=== PATIENT | male | born 1975 | race Caucasian/White ===

== ENCOUNTER 2023-03-28 19:32 | Emergency (ER) | payer OTHER, MEDICAID ==
[~2023-03-28] VITALS: Ht 165.1 cm; Wt 70.3 kg
[2023-03-28 19:32] VITALS: BP_SYST 124
[2023-03-28] MEDS ORDERED: ONDANSETRON HCL 4 MG/2 ML VIAL IVP ONE (20:00)
[2023-03-28] MEDS ORDERED: ASPIRIN 81 MG TABLET(ECOTRIN) PO ONE (20:00)
[2023-03-28] MEDS ORDERED: PANTOPRAZOLE SODIUM 40 MG/VIAL (PROTONIX) IVP ONE (20:00)
[2023-03-28] MEDS ORDERED: KETOROLAC TROMETHAMINE 30 MG VIAL IVP ONE (20:15)
--- NOTE | 2023-03-28 20:15 | NUR ---
FIRST CONTACT WITH PT. ASSESSMENT COMPLETED. AWAITING ADDITIONAL EVAL AN ORDERS.
[2023-03-28 20:48] LABS: BASOPHILS % (AUTO) 0.2 % (0.0-2.0); EOSINOPHILS % (AUTO) 0.2 % (0.0-4.0); HEMATOCRIT 44.1 % (36-54); HEMOGLOBIN 15.3 g/dL (14.0-18.0); LYMPHOCYTES # (AUTO) 1.3 K/uL (1.0-5.5); LYMPHOCYTES % (AUTO) 18.6 % (20.5-51.5); MEAN CORPUSCULAR HEMOGLOBIN 32 pg (27-31); MEAN CORPUSCULAR HGB CONC 35 % (32-36); MEAN CORPUSCULAR VOLUME 93 fL (79.0-98.0); MONOCYTES # (AUTO) 0.6 K/uL (0.0-1.0); MONOCYTES % (AUTO) 8.6 % (1.7-9.3); NEUTROPHILS # (AUTO) 5.1 K/uL (1.8-7.7); NEUTROPHILS % (AUTO) 72.4 % (40.0-70.0); PLATELET COUNT (AUTO) 250 K/uL (130-430); RED BLOOD CELL COUNT(AUTO) 4.76 MIL/uL (4.2-6.2); RED CELL DISTRIBUTION WIDTH 12.9 % (9.0-15.0)
[2023-03-28 20:50] LABS: ANION GAP 11 (5-15); CALCIUM 8.8 mg/dL (8.4-11.0); CHLORIDE 97 mmol/L (98-107); CREATININE 0.79 mg/dL (0.55-1.30); GFR AFRICAN AMERICAN 135 mL/min (>90); GLUCOSE 189 mg/dL (70-99); UREA NITROGEN, BLOOD 18 mg/dL (8-21)
[2023-03-28 20:58] LABS: ALANINE AMINOTRANSFERASE 21 U/L (12-78); ALBUMIN 3.7 g/dL (3.4-4.8); ALCOHOL, BLOOD < 3 mg/dL (<10); ASPARTATE AMINOTRANSFERASE 18 U/L (10-37); TOTAL BILIRUBIN 0.7 mg/dL (0.0-1.0)
--- NOTE | 2023-03-28 21:05 | NUR ---
PT RESTING QUIETLY WITH NO SIGNS OF DISTRESS.
[2023-03-28] MEDS ORDERED: OMEP40CA20 PO (22:08)
[2023-03-28] MEDS ORDERED: ONDA-8 TL (22:08)
[2023-03-28 23:30] VITALS: BP_SYST 142
--- NOTE | 2023-03-28 23:43 | NUR ---
Patient given written and verbal discharge instructions and verbalizes understanding. ER MD JAMES discussed with patient the results and treatment provided. Patient in stable condition. ID arm band removed. IV catheter removed intact and dressing applied, no active bleeding. Rx of ZOFRAN AND OMEPRAZOLE given. Patient educated on pain management and to follow up with PMD. Pain Scale . Opportunity for questions provided and answered THROUGH [employer] Medication side effect fact sheet provided.
== END 2023-03-28 23:42 | disposition home or self-care (01) ==
LOC: SED 19:32
DX: R07.89 Other chest pain (principal); K29.70 Gastritis, unspecified, without bleeding; F15.10 Other stimulant abuse, uncomplicated; R10.13 Epigastric pain; R11.2 Nausea with vomiting, unspecified; E11.9 Type 2 diabetes mellitus without complications; I10 Essential (primary) hypertension; Z79.899 Other long term (current) drug therapy
CPT/HCPCS: 99285; 96374; 70450; 71045; 96375; 80053; 83880; 85025; 84484; 36415; 93005; 76376; G0482; J1885; J2405; C9113